=== PATIENT | male | born 1975 | race Caucasian/White ===

== ENCOUNTER 2023-05-17 10:50 | Emergency (ER) | payer BC, SELFPAY ==
[2023-05-17 10:54] VITALS: BP 147/113
[2023-05-17 11:25] VITALS: BMI 26.4
--- NOTE | 2023-05-17 11:26 | ED.GENMED ---
History of Present Illness
<Mariann Dukes PA-C - Last Filed: 05/17/23 15:51>
General
Chief Complaint: Abdominal Pain
Source: patient
Exam Limitations: none
Time Seen by Provider: 05/17/23 11:25
Nursing documentation reviewed up to this point in time: agreed with
Travel History
Have you had any contact with someone who has COVID-19?: No
Do you have any symptoms of coronavirus? Fever > 100 degrees, chills, cough, shortness of breath, sore throat, loss of taste or smell, muscle aches, or headache?: No
History of Present Illness
History of Present Illness:
This is a 48-year-old male with past medical history of diverticulitis, hypertension, colon polyps he is presenting to the emergency department today with concerns of severe dry mouth, muscle rigidity, and abdominal pain for the past 2 days. He
states that he first experienced this about a year ago shortly after the time that he had someone important at work fired. He states that he was able to get away from those people and then a year later, and he got a new job, there was some people
at his new job who are related to who the person who he got fired and he started experiencing the same symptoms again. 2 days ago, he states that he drank a bottled water from work that was package in a container however he sincerely believes that
he is being poisoned. His abdominal pain is located in the lower abdominal quadrants, and he has no associated nausea, vomiting, diarrhea. He has had no fevers or chills. He states that at work 2 days ago when he started experiencing the
symptoms, his boss called EMS and he was taken to [facility]. He states that at the time, they did a urine drug screen and his workup was unremarkable. He states that yesterday he started feeling better however this morning at work he started
experiencing the symptoms again and he went home and subsequently called EMS again. However, he states that today at work he did not leave his water unattended. His symptoms are most concerning for him as his severe dry mouth and muscle
spasms/tingling in his bilateral upper and lower extremities. He believes he is being poisoned by strychnine. He denies chest pain, shortness of breath, back pain, dizziness, lightheadedness, increased anxiety.
Past History
<ALLI Dias Last Filed: 05/17/23 15:51>
Past History
ED Past Medical History: GERD, HTN, Hypercholesterolemia and Other (diverticulitis )
ED Past Surgical History: Appendectomy and Other (colonoscopy)
Social History
Tobacco: Smoker
Personal: Single
Living: with family
Employment: Employed
Review of Systems
<ALLI Dias Last Filed: 05/17/23 15:51>
Review of Systems
All Other Systems: ROS reviewed and negative except as documented in HPI and ROS
Phy Exam
<ALLI Dias Last Filed: 05/17/23 15:51>
Physical Exam
Physical Exam:
General: patient appears well and is in no acute distress
Skin: warm and dry, no rashes or lesions
HEENT: Pupils are equal round and reactive to light. No conjunctival erythema, no myosis. Mucous membranes are moist however tongue appears fissured.
Cardiac: Regular rate and rhythm, no murmurs
Pulm: Normal respiratory effort, no wheezes, rales, or rhonchi
Abdomen: non-distended and non-tender
Musculoskeletal: patient has full ROM and 5/5 strength of b/ upper and lower extremities.
Neuro: Alert and oriented x 3. Cranial nerves II through XII intact. [id number]-vb-[id number] testing intact, zptj-ku-pdvj testing intact
Psychiatric: Patient has poor insight intact judgment
Course
<ALLI Dias Last Filed: 05/17/23 15:51>
Orders/Labs/Results
Orders:
Orders
05/17/23 11:31
0.9% Sodium Chloride 1000 ml [Nss] 1,000 ml IV BOLUS
05/17/23 11:33
Complete Blood Count/With Diff Urgent
Comprehensive Metabolic Panel Urgent
Creatine Phosphokinase Urgent
Comment: CPK ADDED ON BY FLOOR 12:11PM 05-17-23
Fentanyl, Urine Urgent
Urine Drug Abuse Screen Urgent
Date Specimen was Collected: 05/17/23
Time Specimen was Collected: 11:31
05/17/23 12:11
Add On- LAB Urgent
Tests Added?: CPK
Abnormal Lab Results
05/17/23
11:33
RBC 4.56 L 10^6/uL
(4.70-6.10)
Hct 38.9 L %
(39.0-52.0)
Carbon Dioxide 20 L mmol/L
(22-30)
Glucose 120 H mg/dl
(70-99)
Ur Buprenorphine Positive H
(Negative)
05/17/23 11:33
05/17/23 11:33
Vital Signs
Initial and Last Documented VS:
Initial Vital Signs
Temp Pulse Resp BP Pulse Ox
98.7 F 103 18 147/113 97
05/17/23 10:54 05/17/23 10:54 05/17/23 10:54 05/17/23 10:54 05/17/23 10:54
Last Documented Vital Signs
Temp Pulse Resp BP Pulse Ox
98.7 F 97 16 148/82 99
05/17/23 13:55 05/17/23 13:55 05/17/23 13:55 05/17/23 13:55 05/17/23 13:55
<Pankaj Rivas, DO - Last Filed: 05/17/23 16:24>
Orders/Labs/Results
Orders:
Orders
05/17/23 11:31
0.9% Sodium Chloride 1000 ml [Nss] 1,000 ml IV BOLUS
05/17/23 11:33
Complete Blood Count/With Diff Urgent
Comprehensive Metabolic Panel Urgent
Creatine Phosphokinase Urgent
Comment: CPK ADDED ON BY FLOOR 12:11PM 05-17-23
Fentanyl, Urine Urgent
Urine Drug Abuse Screen Urgent
Date Specimen was Collected: 05/17/23
Time Specimen was Collected: 11:31
05/17/23 12:11
Add On- LAB Urgent
Tests Added?: CPK
Abnormal Lab Results
05/17/23
11:33
RBC 4.56 L 10^6/uL
(4.70-6.10)
Hct 38.9 L %
(39.0-52.0)
Carbon Dioxide 20 L mmol/L
(22-30)
Glucose 120 H mg/dl
(70-99)
Ur Buprenorphine Positive H
(Negative)
05/17/23 11:33
05/17/23 11:33
Vital Signs
Initial and Last Documented VS:
Initial Vital Signs
Temp Pulse Resp BP Pulse Ox
98.7 F 103 18 147/113 97
05/17/23 10:54 05/17/23 10:54 05/17/23 10:54 05/17/23 10:54 05/17/23 10:54
Last Documented Vital Signs
Temp Pulse Resp BP Pulse Ox
98.7 F 97 16 148/82 99
05/17/23 13:55 05/17/23 13:55 05/17/23 13:55 05/17/23 13:55 05/17/23 13:55
<Mariann Dukes PA-C - Last Filed: 05/17/23 15:51>
MDM/Problems Addressed
Differential Diagnosis Includes:
Differentials include Nexium side effect, atorvastatin side effect, rhabdomyolysis, toxic ingestion
MDM/Problems Addressed:
dry mouth
muscle aches
abdominal pain
Chronic conditions affecting care: HTN and Other (diverticulitis, colon polyps)
Acute Exacerbation and/or Progression of Chronic Illness:
n/a
<ALLI Dias Last Filed: 05/17/23 15:51>
*Pulse Oximetry
Patient hypoxic: no
*Critical Care Note
Total Time (30-74mins, 75-104mins- exclusive of procedures): Not Applicable
Data Reviewed
Review of Other/Old Records Reveals: Records (patient has had no recent hospitalizations at [facility]) and Operative Reports (Patient is up-to-date on colonoscopy, patient last had colonoscopy in June 01, 2022 which revealed 5 sessile polpys
in the rectum that were removed)
<Mariann Dukes PA-C - Last Filed: 05/17/23 15:51>
Patient Management
Escalation/DeEscalation of care consider admission/obs:
This is a 48-year-old male with past medical history of diverticulitis, hypertension, GERD, hypercholesterolemia who is presenting to the emergency department today with lower abdominal pain, muscle aches and tremors, as well as dry mouth. Patient
states that the most concerning symptoms to him is his dry mouth. His physical exam was remarkable for a fissured tongue otherwise no other findings. His CBC and CMP is unremarkable, his urine drug screen did show buprenorphine. Patient states
that he does not take this medication. Explained to patient that there is no testing available for strychnine. On reevaluation, patient says that the majority of his symptoms have resolved but he still concerned about poisoning. Updated patient on
results, discussed how symptoms may be related to atorvastatin or Nexium side effects. Advised patient follow-up with his PCP. Patient stable for discharge.
<ALLI Dias Last Filed: 05/17/23 15:51>
Update Note
Update Note:
11:30 pm--initially evaluated patient, will start IV fluids, obtain CBC/CMP, urine drug screen, and reassess
12:20 pm--upon reevaluation, patient states that his symptoms are starting to resolve
ED Attending Note
<Mariann Dukes PA-C - Last Filed: 05/17/23 15:51>
-
Portions of this chart may have been created with voice recognition software.� Occasional wrong word or��sound alike� substitutions may have occurred due to the inherent limitations of voice recognition software.
<Pankaj Rivas DO - Last Filed: 05/17/23 16:24>
ED Attending Note
Patient seen and examined by attending physician: Yes
I performed the substantive portion of visit, reviewed & personally made and approve the management plan that is documented in note by myself or LAURA.: Yes
I performed a history and physical exam of patient and discussed management with resident, I reviewed resident's note and agree with documented findings and plan of care.: Yes
ED Attending Note:
I have reviewed and agree with history and treatment plan by Mariann Dukes. My exam revealed
Physical Exam
General: no apparent distress, not acutely ill
Neck: supple. no meningeal signs. normal posterior pharynx
Heart: s1/s2 regular rate and rhythm, no murmur. equal radial
pulses.
HEENT: Pupils equal round reactive to light, EOMI
Lungs: no acute respiratory distress. clear bilaterally
Abdomen: normal bowel sounds. not tender. no CVAT
Neuro: alert and oriented. no focal neurological deficits cranial nerves II through XII intact
Skin: no rash
Psychiatric: well kept. interactive and cooperative
Extremities: no edema. no calf tenderness. negative homans. good distal pulses
Patient has no signs of strychnine poisoning or other toxidrome. He is stable for discharge. Unclear why he has buprenorphine in his drug screen. He denies using.
Discharge Plan
Departure
Patient Disposition: Home (Routine Discharge)
Date of Disposition: 05/17/23
Time of Disposition: 14:50
Patient with high blood pressure during this ER visit?: Yes
Condition: Good
Discharge Problem:
Abdominal pain, Dry mouth
Instructions: Xerostomia, Abdominal Pain
Prescriptions:
No Action
atorvastatin 10 MG tablet
20 mg PO QPM
esomeprazole magnesium [Nexium] 40 MG capsule,delayed release(DR/EC)
20 mg PO QPM
olmesartan 20 MG tablet
20 mg PO QPM
albuterol sulfate [Proventil HFA] 90 MCG/PUFF HFA aerosol inhaler
2 puff inhalation Q4HPRN PRN (Reason: shortness of breath/cough) Qty: 1 0RF
Referrals:
Sourav Catalan DO [Family Provider] -
Activity Restrictions/Additional Instructions:
Please follow-up with your primary care provider.
Please return for any concerns.
Interventions
Interventions:
*Risk Screen - Suicide Last Done: 05/17/23 11:25
*General Assessment Last Done: 05/17/23 11:25
*Neglect/Abuse Screening Last Done: 05/17/23 11:25
ED- Fall Risk Assessment Last Done: 05/17/23 11:25
*ED COVID-19 Vaccine History Last Done: 05/17/23 11:25
*Nursing Disposition Last Done: 05/17/23 14:55
DN-Sighel-Ljzdlhpzgc Assessment Last Done: 05/17/23 11:25
Discharge Date and Time
Discharge Date/Time: 05/17/23 14:55
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
[2023-05-17] MEDS: NSS 1000 IV (11:38)
[2023-05-17 11:46] LABS: % Basophils 0.5 % (0-2); % Eosinophils 0.8 % (0-6); % Immature Granulocytes 0.3 % (0-0.5); % Lymphocytes 28.7 % (20.5-51.1); % Neutrophils 65.7 % (42.2-75.2); Absolute Eosinophils 0.1 10^3/uL (0-0.7); Absolute Lymphocytes 2.2 10^3/uL (1.2-3.4); Absolute Monocytes 0.3 10^3/uL (0.1-0.6); Hematocrit 38.9 % (39.0-52.0); Hemoglobin 14.1 g/dL (13.0-18.0); Mean Corp Hgb Conc. 36.2 g/dL (33.0-37.0); Mean Corpuscular Hgb 30.9 pg (27.0-31.0); Mean Corpuscular Volume 85.3 fL (80.0-94.0); Mean Platelet Volume 9.2 fL (7.4-10.4); Nucleated Red Blood Cells % 0 % (-); Platelet Count 262 10^3/uL (130-400); Red Blood Cell Count 4.56 10^6/uL (4.70-6.10); Red Cell Dist. Width 12.2 % (11.5-14.5); White Blood Cell Count 7.6 10^3/uL (4.8-10.8)
[2023-05-17 12:06] LABS: ALT (SGPT) 25 U/L (0-50); AST (SGOT) 27 U/L (17-59); Albumin 4.3 g/dl (3.5-5.0); Alkaline Phosphatase 65 U/L (38-126); Blood Urea Nitrogen 11 mg/dl (9-20); Calcium 9.7 mg/dl (8.4-10.2); Carbon Dioxide 20 mmol/L (22-30); Chloride 102 mmol/L (98-107); Estimated Creatinine Clearance > 125 ml/min; Glucose 120 mg/dl (70-99); Potassium 4.1 mmol/L (3.5-5.1); Sodium 136 mmol/L (135-145); Total Bilirubin 0.9 mg/dl (0.2-1.3); Total Protein 7.1 g/dl (6.3-8.2); eGFR > 60.00
[2023-05-17 12:58] LABS: Amphetamines Negative (Negative); Barbiturates Negative (Negative); Benzodiazepines Negative (Negative); Buprenorphine Positive (Negative); Cocaine Negative (Negative); Marijuana Negative (Negative); Methadone Negative (Negative); Methamphetamines Negative (Negative); Opiates Negative (Negative); Phencyclidine Negative (Negative); Tricyclic Antidepressants Negative (Negative)
[2023-05-17 13:28] LABS: Fentanyl, Urine Negative (Negative)
[2023-05-17 13:55] VITALS: BP 148/82
[2023-05-17 14:32] LABS: Creatine Phosphokinase 131 U/L (55-170)
== END 2023-05-17 14:55 | disposition home or self-care (01) ==
LOC: EMR 10:50
PROVIDERS: EMERGENCY PHYSICIAN Emergency Medicine; FAMILY PHYSICIAN Family Medicine
DX: R10.9 Unspecified abdominal pain (principal); R68.2 Dry mouth, unspecified; I10 Essential (primary) hypertension; K21.9 Gastro-esophageal reflux disease without esophagitis; E78.00 Pure hypercholesterolemia, unspecified; F17.200 Nicotine dependence, unspecified, uncomplicated; Z87.19 Personal history of other diseases of the digestive system; Z90.49 Acquired absence of other specified parts of digestive tract
CPT/HCPCS: 99283; 96360; 80053; 80306; 80307; 82550; 85025

== ENCOUNTER 2023-05-19 15:02 | Emergency (ER) | payer BC, SELFPAY ==
[2023-05-19 15:41] VITALS: BP 151/89
[2023-05-19 16:04] LABS: % Basophils 0.8 % (0-2); % Eosinophils 2.3 % (0-6); % Immature Granulocytes 0.1 % (0-0.5); % Lymphocytes 37.1 % (20.5-51.1); % Monocytes 5.7 % (1.7-9.3); Absolute Basophils 0.1 10^3/uL (0-0.2); Absolute Eosinophils 0.2 10^3/uL (0-0.7); Absolute Lymphocytes 2.9 10^3/uL (1.2-3.4); Absolute Monocytes 0.4 10^3/uL (0.1-0.6); Absolute Neutrophils 4.2 10^3/uL (1.4-6.5); Hematocrit 41.3 % (39.0-52.0); Hemoglobin 14.3 g/dL (13.0-18.0); Mean Corp Hgb Conc. 34.6 g/dL (33.0-37.0); Mean Corpuscular Hgb 30.4 pg (27.0-31.0); Mean Corpuscular Volume 87.7 fL (80.0-94.0); Nucleated Red Blood Cells % 0 % (-); Platelet Count 258 10^3/uL (130-400); Red Blood Cell Count 4.71 10^6/uL (4.70-6.10); White Blood Cell Count 7.8 10^3/uL (4.8-10.8)
[2023-05-19 16:19] LABS: ALT (SGPT) 27 U/L (0-50); AST (SGOT) 24 U/L (17-59); Albumin 4.4 g/dl (3.5-5.0); Alkaline Phosphatase 70 U/L (38-126); Blood Urea Nitrogen 12 mg/dl (9-20); Calcium 9.7 mg/dl (8.4-10.2); Carbon Dioxide 24 mmol/L (22-30); Chloride 99 mmol/L (98-107); Glucose 115 mg/dl (70-99); Sodium 135 mmol/L (135-145); Total Bilirubin 0.8 mg/dl (0.2-1.3); Total Protein 7.1 g/dl (6.3-8.2); eGFR > 60.00
[2023-05-19 19:13] VITALS: BP 140/99
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
[2023-05-19 20:00] VITALS: BP 132/84
[2023-05-19 20:36] VITALS: BMI 27.5
[2023-05-20 00:56] VITALS: BP 98/60
== END 2023-05-20 01:04 | disposition home or self-care (01) ==
LOC: EMR 15:02
PROVIDERS: Student in an Organized Health Care Education/Training Program; EMERGENCY PHYSICIAN Emergency Medicine; FAMILY PHYSICIAN Family Medicine
DX: Z77.29 Contact with and (suspected) exposure to other hazardous substances (principal); R51.9 Headache, unspecified; R10.9 Unspecified abdominal pain; R19.5 Other fecal abnormalities; Y93.89 Activity, other specified; Y92.89 Other specified places as the place of occurrence of the external cause; Y99.0 Civilian activity done for income or pay; K21.9 Gastro-esophageal reflux disease without esophagitis; I10 Essential (primary) hypertension; K57.92 Diverticulitis of intestine, part unspecified, without perforation or abscess without bleeding; E78.00 Pure hypercholesterolemia, unspecified; F17.200 Nicotine dependence, unspecified, uncomplicated
CPT/HCPCS: 99285; 70450; 74177; 80053; 85025; Q9967

== ENCOUNTER → 2023-07-23 06:51 | Outpatient (REF) | payer BC, SELFPAY | LOC: PAVMRI 06:51 | PROVIDERS: ATTENDING PHYSICIAN Psychiatry & Neurology Neurology | DX: R29.818 Other symptoms and signs involving the nervous system (principal) | CPT/HCPCS: 70551; 72141 ==

== ENCOUNTER → 2024-05-29 15:01 | Outpatient (REF) | payer BC, SELFPAY | LOC: RCS 15:01 | PROVIDERS: ATTENDING PHYSICIAN Internal Medicine; FAMILY PHYSICIAN Family Medicine | DX: I10 Essential (primary) hypertension (principal); E78.2 Mixed hyperlipidemia; R00.2 Palpitations | CPT/HCPCS: 93306 ==

== ENCOUNTER → 2024-11-09 11:44 | Outpatient (REF) | payer BC, SELFPAY | LOC: MRI 3T 11:44 | PROVIDERS: ATTENDING PHYSICIAN Family Medicine | DX: H53.9 Unspecified visual disturbance (principal) | CPT/HCPCS: 70553; A9575 ==

== ENCOUNTER 2024-12-16 14:32 | Emergency (ER) | payer BC, SELFPAY ==
[2024-12-16 14:35] VITALS: BP 162/100
--- NOTE | 2024-12-16 15:43 | ED.GENMED ---
History of Present Illness
<Tma Santillan MD, Resident - Last Filed: 12/16/24 17:58>
General
Chief Complaint: Musculo-Skeletal Complaint
Source: patient
Time Seen by Provider: 12/16/24 15:06
Travel History
Have you traveled to any high risk areas for coronavirus over the past 14 days?: No
Have you had any contact with someone who has COVID-19?: No
History of Present Illness
History of Present Illness:
Karlos is a 49-year-old male with history of hyperlipidemia, hypertension, GERD, and multiple ED visits for suspected exposure to hazardous substances who presents to the ED via personal vehicle for workup of bilateral lower and upper extremity
muscle tremors, palpitations, nausea, and leg weakness that started around 10 AM this morning. Karlos states that this is the fifth episode since 2020 and he believes this is the doing of a coworker that he got fired years ago. He says that this
morning around 10 AM, he arrived at work and noticed his office door was open. He went and he sat in his chair and within minutes, he started to feel 'sick.' He states that he started having severe dry mouth, tremors in his hands and feet, eye
flickering/lacrimation, and severe palpitations. He got up to start walking and he felt his legs were giving out below him. He got a hold of his boss (Joon [phone]) to tell him what was happening and called his prosecutor who has been helping
him with his case. He states that his prosecutor told them to take off his clothes immediately (he did so in the parking lot), shower, and drive himself to the hospital to be evaluated. He did so and arrived to the hospital around 1 PM. Karlos
believes that he has been poisoned with organophosphate. In the ED, his symptoms have subsided completely.
Past History
<Tam Santillan MD, Resident - Last Filed: 12/16/24 17:58>
Past History
ED Past Medical History: GERD, HTN, Hypercholesterolemia and Other (diverticulitis )
ED Past Surgical History: Appendectomy and Other (colonoscopy)
Social History
Tobacco: Former smoker (Quit in 2020, [id number] history)
Alcohol: None
Drug: Marijuana (THC Gummies)
Personal: Single
Living: with family
Employment: Employed
Family History
Family History: Cancer (Sister with breast cancer in early 30s)
Review of Systems
<Tam Santillan MD, Resident - Last Filed: 12/16/24 17:58>
Review of Systems
Allergies reviewed?: Yes
All Other Systems: ROS reviewed and negative except as documented in HPI and ROS
Phy Exam
<Tam Santillan MD, Resident - Last Filed: 12/16/24 17:58>
General Physical Exam
General Presentation: well appearing and no apparent distress
General Skin: warm and dry
General Mental: alert
General Hydration: appears well hydrated
ENT Exam
ENT Exam: EOMI
Cardiovascular Exam
Cardiovascular Exam: regular rate/rhythm, no edema and no gallop
Pulmonary Exam
Pulmonary Exam: lungs clear and no respiratory distress
Gastrointestinal Exam
Gastrointestinal Exam: normal bowel sounds, non tender, soft and non distended
Neurological Exam
Neurological Exam: alert, oriented x3, no motor deficits and no sensory deficits
Musculoskeletal Exam
Musculoskeletal Exam: full ROM and no edema
Skin Exam
Skin Exam: normal color and warm/dry
Psychiatric Exam
Psychiatric Exam: normal mood/affect
Course
<Tam Santillan MD, Resident - Last Filed: 12/16/24 17:58>
Orders/Labs/Results
Orders:
Orders
12/16/24 14:37
ECG [Electrocardiogram (*1)] Urgent
Reason for Study: Chest Pain
EKG- Treatment ONCE
12/16/24 16:23
Acetaminophen Urgent
Aspirin level [Salicylate] Urgent
Comprehensive Metabolic Panel Urgent
Urine Drug Abuse Screen Urgent
Date Specimen was Collected: 12/16/24
Time Specimen was Collected: 16:16
12/16/24 17:37
Sodium Chloride [[place], Saline Mist] 2 sprays NASAL NOW STA
Abnormal Lab Results
12/16/24
16:23
Glucose 105 H mg/dl
(70-99)
Salicylates < 1.0 L mg/dl
(2.0-20.0)
Acetaminophen < 10 L ug/ml
(10-30)
12/16/24 16:23
Vital Signs
Initial and Last Documented VS:
Initial Vital Signs
Temp Pulse Resp BP Pulse Ox
98.1 F 113 16 162/100 98
12/16/24 14:35 12/16/24 14:35 12/16/24 14:35 12/16/24 14:35 12/16/24 14:35
Last Documented Vital Signs
Temp Pulse Resp BP Pulse Ox
98.1 F 113 16 162/100 98
12/16/24 14:35 12/16/24 14:35 12/16/24 14:35 12/16/24 14:35 12/16/24 15:51
<Tarik Butcher, DO - Last Filed: 12/16/24 17:23>
Orders/Labs/Results
Orders:
Orders
12/16/24 14:37
ECG [Electrocardiogram (*1)] Urgent
Reason for Study: Chest Pain
EKG- Treatment ONCE
12/16/24 16:23
Acetaminophen Urgent
Aspirin level [Salicylate] Urgent
Comprehensive Metabolic Panel Urgent
Urine Drug Abuse Screen Urgent
Date Specimen was Collected: 12/16/24
Time Specimen was Collected: 16:16
12/16/24 17:37
Sodium Chloride [[place], Saline Mist] 2 sprays NASAL NOW STA
Abnormal Lab Results
12/16/24
16:23
Glucose 105 H mg/dl
(70-99)
Salicylates < 1.0 L mg/dl
(2.0-20.0)
Acetaminophen < 10 L ug/ml
(10-30)
12/16/24 16:23
Vital Signs
Initial and Last Documented VS:
Initial Vital Signs
Temp Pulse Resp BP Pulse Ox
98.1 F 113 16 162/100 98
12/16/24 14:35 12/16/24 14:35 12/16/24 14:35 12/16/24 14:35 12/16/24 14:35
Last Documented Vital Signs
Temp Pulse Resp BP Pulse Ox
98.1 F 113 16 162/100 98
12/16/24 14:35 12/16/24 14:35 12/16/24 14:35 12/16/24 14:35 12/16/24 15:51
<Tam Santillan MD, Resident - Last Filed: 12/16/24 17:58>
MDM/Problems Addressed
MDM/Problems Addressed:
Karlos is a 49-year-old male with history of hyperlipidemia, hypertension, GERD, and multiple ED visits for suspected exposure to hazardous substances who presents to the ED via personal vehicle for workup of bilateral lower and upper extremity
muscle tremors, palpitations, nausea, and leg weakness that started around 10 AM this morning.
#Bilateral lower and upper extremity muscle tremors
#Palpitations
#Nausea
#Leg weakness
In the ED, his symptoms have subsided. On presentation: HR 113, BP 162/100, RR 16, otherwise HDS.
- CMP WNL
- UDS unremarkable
- Salicylate level 1L, acetaminophen level <10L
Medically stable for discharge to home.
Chronic problems:
#Hyperlipidemia
#Hypertension
- Home atorvastatin 20 mg, losartan 50 mg
#GERD
- Home esomeprazole
<Tam Santillan MD, Resident - Last Filed: 12/16/24 17:58>
*Pulse Oximetry
SaO2: 98
Oxygen Mode of Delivery: Room air
Patient hypoxic: no
*Critical Care Note
Total Time (30-74mins, 75-104mins- exclusive of procedures): Not Applicable
ED Attending Note
<Tam Santillan MD, Resident - Last Filed: 12/16/24 17:58>
-
Portions of this chart may have been created with voice recognition software.� Occasional wrong word or��sound alike� substitutions may have occurred due to the inherent limitations of voice recognition software.
<Tarik Butcher DO - Last Filed: 12/16/24 17:23>
ED Attending Note
Patient seen and examined by attending physician: Yes
I performed a history and physical exam of patient and discussed management with resident, I reviewed resident's note and agree with documented findings and plan of care.: Yes
ED Attending Note:
Seen with resident examined independently 49-year-old male presents he believes he has been repetitively poisoning that his work is retribution, he has notified the police the [employer] apparently came to [place] prosecutor's have been involved, when
evaluated his vital signs are stable with clear speech, no rhinorrhea no drooling no respiratory apparently told the resident he thought he had organophosphate exposure, workup here is negative, provided reassurance, able to be discharged
Discharge Plan
Departure
Patient Disposition: Home (Routine Discharge)
Date of Disposition: 12/16/24
Time of Disposition: 17:24
Patient with high blood pressure during this ER visit?: No
Condition: Good
Discharge Problem:
Exposure to potentially hazardous substance
Prescriptions:
No Action
atorvastatin 10 MG tablet
20 mg PO QPM
esomeprazole magnesium [Nexium] 40 MG capsule,delayed release(DR/EC)
20 mg PO QPM
olmesartan 20 MG tablet
20 mg PO QPM
albuterol sulfate [Proventil HFA] 90 MCG/PUFF HFA aerosol inhaler
2 puff inhalation Q4HPRN PRN (Reason: shortness of breath/cough) Qty: 1 0RF
Referrals:
UNKNOWN - PT DOES,NOT KNOW [Unknown Provider]
Interventions
Interventions:
*Risk Screen - Suicide Last Done: 12/16/24 14:35
*Neglect/Abuse Screening Last Done: 12/16/24 14:35
Discharge Date and Time
Print Language: MOLDOVAN
[2024-12-16 17:04] LABS: ALT (SGPT) 27 U/L (0-50); AST (SGOT) 24 U/L (17-59); Acetaminophen < 10 ug/ml (10-30); Albumin 5.0 g/dl (3.5-5.0); Alkaline Phosphatase 70 U/L (38-126); Blood Urea Nitrogen 14 mg/dl (9-20); Calcium 10.2 mg/dl (8.4-10.2); Carbon Dioxide 25 mmol/L (22-30); Chloride 103 mmol/L (98-107); Glucose 105 mg/dl (70-99); Potassium 4.5 mmol/L (3.5-5.1); Salicylate < 1.0 mg/dl (2.0-20.0); Sodium 135 mmol/L (135-145); Total Protein 7.7 g/dl (6.3-8.2); eGFR > 60.00
[2024-12-16] MEDS: OCEAN, SALINE MIST 2 SPRAYS NASAL (18:08)
[2024-12-16 18:20] VITALS: BP 141/92
== END 2024-12-16 18:20 | disposition home or self-care (01) ==
LOC: EMR 14:32
PROVIDERS: EMERGENCY PHYSICIAN Emergency Medicine; FAMILY PHYSICIAN Family Medicine
DX: Z77.29 Contact with and (suspected) exposure to other hazardous substances (principal); R00.2 Palpitations; R25.1 Tremor, unspecified; R11.0 Nausea; E78.00 Pure hypercholesterolemia, unspecified; I10 Essential (primary) hypertension; K21.9 Gastro-esophageal reflux disease without esophagitis; Z87.891 Personal history of nicotine dependence
CPT/HCPCS: 99284; 80053; 80143; 80179; 80306; 93005